=== PATIENT | female | born 1955 | race Caucasian/White ===

== ENCOUNTER 2023-10-15 06:05 | Day surgery (SDC) | payer MEDICARE, OTHER ==
[~2023-10-15 06:05] MED LIST: Lactated Ringers 1,000 ML IV SCH; Sodium Chloride 0.9% 10 ML Syringe FLUSH PRN; Sodium Chloride 0.9% 10 ML Syringe FLUSH SCH
[2023-10-15] MEDS ORDERED: Lidocaine 1% 8 ML ONE (06:42)
[2023-10-15] MEDS ORDERED: Midazolam 1 MG/ML 2 ML SDV ONE (06:43)
[2023-10-15] MEDS ORDERED: fentaNYL 100 MCG/2 ML SDV ONE (06:43)
[2023-10-15] MEDS ORDERED: Propofol 200 MG/20 ML SDV ONE ×2 (06:43→09:00)
[2023-10-15] MEDS ORDERED: Ondansetron 4 MG/2 ML SDV ONE (07:42)
[2023-10-15] MEDS ORDERED: ceFAZolin 2 GM Vial ONE (07:43)
[2023-10-15] MEDS ORDERED: Lactated Ringers 1,000 ML ONE (07:57)
[2023-10-15] MEDS ORDERED: ePHEDrine 50 MG/ML SDV ONE (08:14)
[2023-10-15] MEDS: Tranexamic Acid 1,000 MG/10 ML Vial ONE ×2 (08:21→08:36)
[2023-10-15] MEDS: Vancomycin 1 GM SDV ONE ×2 (08:21→08:36)
[2023-10-15] MEDS: Morphine 8 MG, EPINEPHrine 0.3 MG, Cefuroxime 750 MG, Ketorolac 30 MG, Sodium Chloride ... PRN ×10 (08:21→08:36)
[2023-10-15] MEDS ORDERED: HYDROmorphone 0.5 MG/0.5 ML Syringe IVPUSH PRN (08:52)
[2023-10-15] MEDS ORDERED: fentaNYL 100 MCG/2 ML SDV IVPUSH PRN (08:52)
[2023-10-15] MEDS ORDERED: oxyCODONE 5 MG Tab PO ONE (10:09)
[2023-10-15] MEDS ORDERED: Ketorolac 30 MG/ML SDV IVPUSH ONE (10:52)
== END 2023-10-15 12:58 | disposition home or self-care (01) ==
LOC: JD.SDS 06:05
PROVIDERS: ATTEND Orthopaedic Surgery
DX: M16.11 Unilateral primary osteoarthritis, right hip (principal); M25.551 Pain in right hip; R11.2 Nausea with vomiting, unspecified; I10 Essential (primary) hypertension; K21.9 Gastro-esophageal reflux disease without esophagitis; M87.9 Osteonecrosis, unspecified; Z01.818 Encounter for other preprocedural examination; Z79.899 Other long term (current) drug therapy; Z88.2 Allergy status to sulfonamides
CPT/HCPCS: 0055T; 27130; 36415; 73501; 86850; 86900; 86901; 97161; A9270; C1713; C1776; J0171; J0690; J0697; J1885; J2250; J2270; J2405; J2704; J3010; J3370; J7030; J7120; 01214; J3490